=== PATIENT | female | born 2000 | race Caucasian/White ===

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

== ENCOUNTER 2020-08-08 11:31 | Emergency (ER) | payer OTHER ==
[2020-08-08 11:34] VITALS: BP 135/88; PULSE 80; RESP 18; TEMP 98.5
--- NOTE | 2020-08-08 11:51 | ED ---
General Adult HPI - General Source: patient Mode of arrival: ambulatory Limitations: no limitations <Jere Dorsey - Last Filed: 08/08/20 12:01> <Ying Rojas - Last Filed: 08/08/20 21:46> - General Chief complaint: Extremity Injury, Upper Stated complaint: hand injury Time Seen by Provider: 08/08/20 11:35 - History of Present Illness Initial comments: 19-year-old female presents to the emergency room for a chief complaint of removal of acrylic nail. Patient reports that she slammed her right second digit in a car door and injured it. Patient reports she had x-rays at urgent care at another emergency center and there were no fractures. Patient reports that she is close to be getting in 3 hours and once the acrylic nail removed. States she went to her nail salon and they were not able to do soaks there is some bleeding. She reports she is supposed to be getting a white nail placed for her wedding but will not be able to do this if the initial acrylic is not removed.Patient has no other complaints at this time including shortness of breath, chest pain, abdominal pain, nausea or vomiting, headache, or visual changes. (Jere Dorsey) - Related Data Home Medications Medication Instructions Recorded Confirmed Albuterol Inhaler (Mhu) [Ventolin 2 puff INHALATION RT-Q6H PRN 08/18/14 11/01/18 Hfa Inhaler (Mhu)] Vilvet 1 tab PO DAILY 11/01/18 11/01/18 Previous Rx's Medication Instructions Recorded predniSONE [Deltasone] 40 mg PO DAILY 5 Days #10 tablet 11/02/18 Allergies Allergy/AdvReac Type Severity Reaction Status Date / Time nickel [Nickel] Allergy Rash/Hives Verified 08/08/20 11:35 red dye Allergy Unknown Verified 08/08/20 11:35 Review of Systems ROS Other: All systems not noted in ROS Statement are negative. <Jere Dorsey - Last Filed: 08/08/20 12:01> ROS Other: All systems not noted in ROS Statement are negative. <Ying Rojas - Last Filed: 08/08/20 21:46> ROS Statement: Those systems with pertinent positive or pertinent negative responses have been documented in the HPI. Past Medical History Past Medical History: Asthma Additional Past Medical History / Comment(s): bronchitis History of Any Multi-Drug Resistant Organisms: None Reported Past Surgical History: Orthopedic Surgery Additional Past Surgical History / Comment(s): Right hand sx Past Psychological History: No Psychological Hx Reported Smoking Status: Never smoker Past Alcohol Use History: None Reported Past Drug Use History: None Reported <Jere Dorsey - Last Filed: 08/08/20 12:01> General Exam Limitations: no limitations General appearance: alert, in no apparent distress Head exam: Present: atraumatic Eye exam: Present: normal appearance, PERRL, EOMI. Absent: scleral icterus, conjunctival injection ENT exam: Present: normal exam, mucous membranes moist Neck exam: Present: normal inspection, full ROM. Absent: tenderness Respiratory exam: Present: normal lung sounds bilaterally. Absent: respiratory distress, wheezes Cardiovascular Exam: Present: regular rate, normal rhythm, normal heart sounds GI/Abdominal exam: Present: soft, normal bowel sounds. Absent: distended, tenderness Extremities exam: Present: other (patient has crack in the proximal aspect of acrylic nail in right second digit. There is minimal bleeding coming from proximal nailbed. There is no avulsion. I am unable to evaluate for subungual hematoma.) <Jere Dorsey - Last Filed: 08/08/20 12:01> Course Vital Signs 08/08/20 11:32 Temperature 98.5 F Pulse Rate 80 Respiratory 18 Rate Blood Pressure 135/88 O2 Sat by Pulse 98 Oximetry Medical Decision Making <Jere Dorsey - Last Filed: 08/08/20 12:01> <Ying Rojas - Last Filed: 08/08/20 21:46> - Medical Decision Making Patient once or acrylic nail removed. Discussed that we are unable to do this given lack of equipment. Patient has no nail avulsion. I'm unable to evaluate for subungual hematoma given acrylic nail. There is slight bleeding coming from the proximal nail fold. She should talk to nail salon again about shaving down acyllic nail and take Motrin Tylenol for pain. She should return for any worsening symptoms. (Jere Dorsey) I was available for consultation in the emergency department. The history and physical exam were done by the midlevel provider. I was consulted for this patients care. I reviewed the case with the midlevel provider and based on their presentation of the patient, I agree with the assessment, medical decision making and plan of care as documented. Chart was dictated using idio dictation software. Attempts were made to correct any dictation errors however some typographical errors may persist. Patient was seen during a national state of emergency due to the Covid-19 pandemic. (Ying Rojas) Disposition Is patient prescribed a controlled substance at d/c from ED?: No Time of Disposition: 11:51 <Jere Dorsey - Last Filed: 08/08/20 12:01> <Ying Rojas - Last Filed: 08/08/20 21:46> Clinical Impression: Injury of nail Disposition: HOME SELF-CARE Condition: Good Instructions (If sedation given, give patient instructions): Nail Avulsion (ED) Additional Instructions: Take Motrin and Tylenol for pain. Monitor for signs of infection such as spreading or streaking redness, drainage, or fever and return if these occur. Otherwise follow-up with primary care. Referrals: Ryan Gutierrez [STAFF PHYSICIAN] - 1-2 days
== END 2020-08-08 12:02 | disposition home or self-care (01) ==
LOC: EC 11:31
DX: S69.81XA Other specified injuries of right wrist, hand and finger(s), initial encounter (principal); J45.909 Unspecified asthma, uncomplicated; Z79.51 Long term (current) use of inhaled steroids; Z91.041 Radiographic dye allergy status; Z91.048 Other nonmedicinal substance allergy status; W22.09XA Striking against other stationary object, initial encounter
CPT/HCPCS: 99283

== ENCOUNTER 2022-06-17 17:29 | Inpatient (IN) | payer MEDICAID, OTHER ==
--- NOTE | 2022-06-17 18:40 | ED ---
General Adult HPI - General Chief complaint: Psychiatric Symptoms Stated complaint: mental health Time Seen by Provider: 06/17/22 18:00 Source: patient, RN notes reviewed, old records reviewed Mode of arrival: ambulatory - History of Present Illness Initial comments: Patient is a 21-year-old female with past medical history remarkable for mild asthma who presents emergency department for psychiatric evaluation. She has been having suicidal ideations for the last year and is gotten worse in the last few weeks. States she does have a plan. Plans to take an overdose on home medications including ibuprofen. Has not attempted. Patient's aunt brought her to the emergency department for evaluation. Denies having a therapist or psychiatrist. Denies any homicidal ideations, attempts, plans. Denies any visual or auditory hallucinations. Denies any chest pain, shortness breath, abdominal pain, nausea, vomiting. No other acute complaint at this time. Endorses occasional social alcohol use. Denies any drug use. Presents for psychiatric evaluation. - Related Data Home Medications Medication Instructions Recorded Confirmed Albuterol Inhaler [Ventolin Hfa 2 puff INHALATION RT-Q6H PRN 08/18/14 06/17/22 Inhaler] Allergies Allergy/AdvReac Type Severity Reaction Status Date / Time nickel [Nickel] Allergy Rash/Hives Verified 06/17/22 19:18 red dye Allergy Unknown Verified 06/17/22 19:18 Review of Systems ROS Statement: Those systems with pertinent positive or pertinent negative responses have been documented in the HPI. Review of Systems: CONST: Denies fever EYES: Denies blurry vision ENT: Denies nasal congestion C/V: Denies Chest pain RESP: Denies shortness of breath GI: Denies abdominal pain : Denies dysuria SKIN: Denies rash. MSK: Denies joint pain. NEURO: Denies headache PSYCH: Denies homicidal ideations/plans/attempts. Denies visual or auditory hallucinations. She endorses suicidal ideations, plan. Denies attempt. ROS Other: All systems not noted in ROS Statement are negative. Past Medical History Past Medical History: Asthma Additional Past Medical History / Comment(s): bronchitis History of Any Multi-Drug Resistant Organisms: None Reported Past Surgical History: Orthopedic Surgery Additional Past Surgical History / Comment(s): Right hand sx Past Psychological History: No Psychological Hx Reported Smoking Status: Never smoker Past Alcohol Use History: None Reported Past Drug Use History: None Reported General Exam - General Exam Comments Initial Comments: General: Appears in no acute distress. HEAD: Normal with no signs of head trauma. EYES: PERRLA, EOMI, conjunctiva normal, no discharge. ENT: Hearing grossly intact, normal oropharynx. RESPIRATORY: Clear breath sounds bilaterally. No wheezes, rales, or rhonchi. C/V: Regular rate and rhythm. S1 and S2 auscultated, no edema, peripheral pulses 2+ and intact throughout ABD: Abd is soft, nontender, nondistended EXT: Normal range of motion, no obvious deformity SKIN: No rashes or lesions observed on exposed skin. NEURO: Alert and oriented x 4. Course Vital Signs 06/17/22 17:57 Temperature 98.6 F Pulse Rate 78 Respiratory 16 Rate Blood Pressure 138/88 O2 Sat by Pulse 100 Oximetry Medical Decision Making - Medical Decision Making Was pt. sent in by a medical professional or institution? @ -No Did you speak to anyone other than the patient for history? @ -Patient's aunt Did you review nursing and triage notes? @ -Agree Were old charts reviewed? @ -No Differential Diagnosis? @ -Suicidal ideations, psychiatric illness. EKG interpreted by me (3pts min.)? @ -none X-rays interpreted by me (1pt min.)? @ -none CT interpreted by me (1pt min.)? @ -none U/S interpreted by me (1pt. min.)? @ -none What testing was considered but not performed? (CT, X-rays, U/S, labs)? Why? @None What meds were considered but not given? Why? @ -none Did you discuss the management of the patient with other professionals? @ -Psych social work was notified of the patient. Pending evaluation. Did you reconcile home meds? @ -none Was smoking cessation discussed for >3mins.? @ -none Was critical care preformed (if so, how long)? @ -none Were there social determinants of health that impacted care today? How? (Homelessness, low income, unemployed, alcoholism, drug addiction, transportation, low edu. Level, literacy, decrease access to med. care, long term, rehab)? @ -None Was there de-escalation of care discussed even if they declined? (Discuss DNR or withdrawal of care, Hospice)? @ -No What co-morbidities impacted this encounter? (DM, HTN, Smoking, COPD, CAD, Cancer, CVA, Hep., AIDS, mental health diagnosis, sleep apnea, morbid obesity)? @ -Anxiety, depression Was patient admitted / discharged? @ -Patient was evaluated for psychiatric evaluation. She was placed in green scrubs. Sitter was ordered. Suicide precautions ordered. BAT is 0. UDS is pending at this time. Patient is medically cleared for evaluation by psychiatry. Disposition is per psychiatric evaluation. Vital signs within acceptable limits. Patient is admitted to inpatient psychiatry in stable condition following psychiatric evaluation. Undiagnosed new problem with uncertain prognosis? @ -Suicidal ideations Drug Therapy requiring intensive monitoring for toxicity (Heparin, Nitro, Insulin, Cardizem)? @ -none Were any procedures done? @ -none Diagnosis/symptom? @ -Suicidal ideations, encounter for psychiatric evaluation. Acute, or Chronic, or Acute on Chronic? @ -Acute Uncomplicated (without systemic symptoms) or Complicated (systemic symptoms)? @ -Uncomplicated Side effects of treatment? @ -none Exacerbation, Progression, or Severe Exacerbation] @ -no Poses a threat to life or bodily function? @ -no Patient is medically cleared for evaluation by psychiatry. Disposition is pending psychiatric evaluation. EpS was notified.Patient was evaluated by EPS. She'll be admitted to inpatient psychiatry in stable condition. - Lab Data Lab Results 06/17/22 06/17/22 Range/Units 18:47 18:59 Urine Opiates Screen Not Detected (NotDetected) Ur Oxycodone Screen Not Detected (NotDetected) Urine Methadone Screen Not Detected (NotDetected) Ur Propoxyphene Screen Not Detected (NotDetected) Ur Barbiturates Screen Not Detected (NotDetected) U Tricyclic Antidepress Not Detected (NotDetected) Ur Phencyclidine Scrn Not Detected (NotDetected) Ur Amphetamines Screen Not Detected (NotDetected) U Methamphetamines Scrn Not Detected (NotDetected) U Benzodiazepines Scrn Not Detected (NotDetected) Urine Cocaine Screen Not Detected (NotDetected) U Marijuana (THC) Screen Not Detected (NotDetected) Coronavirus (PCR) Not Detected (Not Detectd) Disposition Clinical Impression: Encounter for psychiatric assessment Disposition: ADMITTED IP TO THIS HOSP Condition: Stable
[2022-06-17 19:55] LABS: Amphetamine Screen,Urine Not Detected (NotDetected); Barbiturate Screen,Urine Not Detected (NotDetected); Benzodiazepines Screen,Urine Not Detected (NotDetected); Cocaine Screen,Urine Not Detected (NotDetected); Methadone Screen, Urine Not Detected (NotDetected); Opiate Screen,Urine Not Detected (NotDetected); Oxycodone Screen, Urine Not Detected (NotDetected); Phencyclidine Screen,Urine Not Detected (NotDetected); Tricyclic Antidepressant,Urine Not Detected (NotDetected); Urn Cannabinoid Scrn Not Detected (NotDetected)
[2022-06-17] MEDS ORDERED: ALBUTEROL INHALER 60 PUFF/8 GM INHALER (MHU) INHALATION PRN (23:18)
[2022-06-17] MEDS ORDERED: MAGNESIUM HYDROXIDE 2,400 MG/10 ML CUP PO PRN (23:19)
[2022-06-17] MEDS ORDERED: HALOPERIDOL LACTATE 5 MG/ML 1 ML VIAL IM PRN (23:19)
[2022-06-17] MEDS ORDERED: LORazepam 1 MG TAB PO PRN (23:19)
[2022-06-17] MEDS ORDERED: haloperidoL 5 MG TAB PO PRN (23:21)
[2022-06-17] MEDS ORDERED: LORazepam 2 MG/ML INJ IM PRN (23:21)
[2022-06-17] MEDS ORDERED: traZODone HCL 100 MG TAB PO PRN (23:21)
--- NOTE | 2022-06-18 03:47 | P.MDCNMH ---
History of Present Illness H&P Date: 06/17/22 Chief Complaint: medical evaluation 21 year old female , presented with suicidal ideation , she denies any mental health diagnosis in the past, she used to get therapy when she was 6 years old, she denies any medical concerns at this time, denies any fever, chills, chest pain , cough , SOB, changes in bowel or urinary habits, denies any rashes denies tobacco smoking, illicit drugs or heavy alcohol. she admits to vaping, and having social drinks once or twice a week. she reports history of asthma, but rarely requires inhalers. Review of Systems Pertinent positives as noted in HPI. All other systems were reviewed and are negative Past Medical History Past Medical History: Asthma Additional Past Medical History / Comment(s): bronchitis History of Any Multi-Drug Resistant Organisms: None Reported Past Surgical History: Orthopedic Surgery Additional Past Surgical History / Comment(s): Right hand sx Past Anesthesia/Blood Transfusion Reactions: No Reported Reaction Past Psychological History: No Psychological Hx Reported Smoking Status: Vaper Past Alcohol Use History: None Reported Past Drug Use History: None Reported - Past Family History family Family Medical History: Diabetes Mellitus, Hypertension Medications and Allergies Home Medications Medication Instructions Recorded Confirmed Type Albuterol Inhaler [Ventolin Hfa 2 puff INHALATION RT-Q6H PRN 08/18/14 06/17/22 History Inhaler] Allergies Allergy/AdvReac Type Severity Reaction Status Date / Time nickel [Nickel] Allergy Rash/Hives Verified 06/17/22 19:18 red dye Allergy Unknown Verified 06/17/22 19:18 Physical Exam Vitals: Vital Signs Temp Pulse Pulse Resp BP BP Pulse Ox 06/18/22 01:15 97.0 F L 69 18 133/83 06/17/22 17:57 98.6 F 78 16 138/88 100 Intake and Output 06/17/22 06/17/22 06/18/22 14:59 22:59 06:59 Other: Weight 86.183 kg 86.183 kg Constitutional: No acute distress, conversant, Eyes: Anicteric sclerae, moist conjunctiva, Pupils equal round reactive to light ENMT: NC/AT Oropharynx clear, no erythema, or exudates Neck: Supple, no masses, or JVD No carotid bruits No thyromegaly Lungs: Clear to auscultation Clear to percussion Normal respiratory effort, no accessory muscle use Cardiovascular: Heart regular in rate and rhythm, No murmurs, gallops, or rubs No peripheral edema Abdominal: Soft Nontender, no guarding, rebound or rigidity Abdomen moving with respiration Normoactive bowel sounds Skin: Normal temperature, tone, texture, turgor Extremities: No digital cyanosis No clubbing Pedal pulses intact and symmetrical Radial pulses intact and symmetrical No calf tenderness Psychiatric: Alert and oriented to person, place and time Neuro Muscles Strength 5/5 in all 4 extremities Sensation to light touch grossly present throughout Cranial nerves II-XII grossly intact Lymphatics: no palpable cervical or supraclavicular lymph nodes Cranial Nerve Examination - Cranial Nerves Cranial Nerve II- Optic: Intact Cranial Nerve III- Oculomotor: Intact Cranial Nerve IV- Trochlear: Intact Cranial Nerve V- Trigeminal: Intact Cranial Nerve - Abducens: Intact Cranial Nerve VII- Facial: Intact Cranial Nerve VIII- Auditory: Intact Cranial Nerve IX- Glossopharyngeal: Intact Cranial Nerve X- Vagus: Intact Cranial Nerve XI- Accessory: Intact Cranial Nerve XII- Hypoglossal: Intact Assessment and Plan Assessment: suicidal ideation management per psych obesity counseled regarding lifestyle modification and weight loss intermittent asthma monitor for any flare ups follow up blood work , TSH , and lipid panel thank you for this consultation , patient is stable from medical stand point at this time
[2022-06-18] MEDS: ACETAMINOPHEN TAB 325 MG TAB PO PRN (09:21)
[2022-06-18 09:26] LABS: Basophils # (A) 0.1 k/uL (0-0.2); Basophils % (A) 1 %; Eosinophils # (A) 0.3 k/uL (0-0.7); Eosinophils % (A) 4 %; HCT 43.2 % (34.0-46.0); HGB 13.5 gm/dL (11.4-16.0); Hypochromasia Slight; Lymphocytes # (A) 1.8 k/uL (1.0-4.8); Lymphocytes % (A) 21 %; MCH 27.8 pg (25.0-35.0); MCHC 31.4 g/dL (31.0-37.0); MCV 88.7 fL (80.0-100.0); Mean Platelet Volume 9.8; Monocytes # (A) 0.5 k/uL (0-1.0); Monocytes % (A) 5 %; Neutrophils # (A) 6.1 k/uL (1.3-7.7); Neutrophils % (A) 68 %; Platelet Count 295 k/uL (150-450); RBC 4.87 m/uL (3.80-5.40); RDW 13.1 % (11.5-15.5); WBC 8.9 k/uL (3.8-10.6)
[2022-06-18] MEDS: NICOTINE 14MG/24HR PATCH TRANSDERM SCH (09:32)
[2022-06-18 09:36] LABS: ALT 21 U/L (4-34); AST 24 U/L (14-36); African American GFR (CKD) >90 (>60 ml/min/1.73 sqM); Albumin 4.3 g/dL (3.5-5.0); Alkaline Phosphatase 88 U/L (38-126); Anion Gap 8 mmol/L; Blood Urea Nitrogen 11 mg/dL (7-17); Calcium 9.5 mg/dL (8.4-10.2); Carbon Dioxide 25 mmol/L (22-30); Chloride 105 mmol/L (98-107); Glucose 112 mg/dL (74-99); Non-African American GFR(CKD) >90 (>60 ml/min/1.73 sqM); Potassium 4.1 mmol/L (3.5-5.1); Sodium 138 mmol/L (137-145); Total Bilirubin 0.5 mg/dL (0.2-1.3); Total Protein 7.4 g/dL (6.3-8.2)
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
[2022-06-18] MEDS: SERTRALINE 50 MG TAB PO SCH (14:27)
[2022-06-18 14:54] LABS: Chol/HDL Ratio 2.68 Ratio; LDL Cholesterol,Calculated 84.5 mg/dL (0.0-131.0); VLDL Calculation 14.56 mg/dL (5.00-40.00)
[2022-06-18] MEDS: MAG HYDROX/AL HYDROX/SIMETH 30 ML CUP PO PRN (18:58)
[2022-06-18] MEDS: traZODone HCL 50 MG TAB PO SCH (20:13)
[2022-06-19 07:26] VITALS: RESP 14
[2022-06-19] MEDS: NICOTINE 14MG/24HR PATCH TRANSDERM SCH (09:05)
[2022-06-19] MEDS: SERTRALINE 50 MG TAB PO SCH (09:06)
[2022-06-19] MEDS: MAG HYDROX/AL HYDROX/SIMETH 30 ML CUP PO PRN (09:06)
--- NOTE | 2022-06-19 11:39 | P.PN ---
Progress Note - Text Progress Note Date: 06/19/22 Interval History: Patient was seen wandering the hallways and was directable and agreeable to danielle atkins with sports book writer in the office. Patient appears to be brighter in her affect today. She states that she is doing a bit better since yesterday in terms of her mood and anxiety. Claims that she was feeling a bit nauseous yesterday after eating and was requesting to be on antinausea medications. Patient is okay with continuing on with her medications. She states that she slept fairly well last night and still feels somewhat tired this morning. Claims that she is trying to go to groups and participate more. Appears to be more talkative and improving eye contact. Claims that she would like to stay with her mother upon discharge. At this time patient denies any suicidal or homical ideations, intent or plan. Patient denies any auditory, visual hallucinations and denies any paranoia or delusions. Patient denies any side effects from the medications and has been compliant with meds. Mental Status Exam: General Appearance: Patient appears to be overweight, stated age is alert, directable, and attempts to cooperate. Patient appears to have improving hygiene and grooming. Improving eye contact. Behavior: Patient is seated without any agitated behavior. Will cooperative today. Speech: Patient's speech is fluent and nonpressured. Mood/Affect: Patient reports their mood is improving mildly, affect is congruent and constricted. Suicidality/Homicidality: Patient denies having any homicidal ideation intent or plan. She denies any suicidal thoughts, no intent or plan. Perceptions: Patient denies any visual hallucinations and denies any auditory hallucinations Though content/process: There is no evidence of any delusional thought content and thought process is linear and goal-directed. Memory and concentration: AOX3, grossly intact for the purposes of this session Judgment and insight: Improving mildly IMPRESSIONS: Major depressive disorder, severe without psychotic features Nicotine dependence Cannabis use disorder mild Plan: -Patient continues to meet criteria for inpatient psychiatric admission for symptom stabilization and safety. Patient has signed adult voluntary form and medication consent and was placed in patient's chart. -Medications: increase Zoloft 75 mg daily for mood/anxiety, trazodone 50 mg daily at bedtime or mood/insomnia. -When necessary Ativan and Haldol for agitation/aggression. -NRT - nicotine patch -SW on board for discharge planning. Encouraged the patient to participate in milieu. workers' compensation mediator to contact patient's mother today and arrange for possible discharge tomorrow and to ensure environment is safe at home no guns or weapons.
[2022-06-19] MEDS: ONDANSETRON 4 MG TAB PO PRN (17:50)
[2022-06-19] MEDS: traZODone HCL 50 MG TAB PO SCH (21:04)
[2022-06-20 06:55] VITALS: BP 108/59; PULSE 72; TEMP 98.4
[2022-06-20] MEDS: NICOTINE 14MG/24HR PATCH TRANSDERM SCH (08:53)
[2022-06-20] MEDS ORDERED: SERTRALINE 25 MG TAB PO SCH (09:00)
[2022-06-20] MEDS: ACETAMINOPHEN TAB 325 MG TAB PO PRN (10:57)
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
[2022-06-20] MEDS: ONDANSETRON 4 MG TAB PO PRN (13:28)
== END 2022-06-20 17:00 | disposition home or self-care (01) | DRG 885 ==
LOC: EC 17:29 → 3MHU 22:54
PROVIDERS: ADMIT Psychiatry & Neurology Psychiatry; ATTEND Psychiatry & Neurology Psychiatry
DX: F33.2 Major depressive disorder, recurrent severe without psychotic features (principal); R45.851 Suicidal ideations; F17.210 Nicotine dependence, cigarettes, uncomplicated; Z20.822 Contact with and (suspected) exposure to COVID-19; Z71.6 Tobacco abuse counseling; F12.10 Cannabis abuse, uncomplicated; F10.20 Alcohol dependence, uncomplicated; F41.9 Anxiety disorder, unspecified; J40 Bronchitis, not specified as acute or chronic; J45.909 Unspecified asthma, uncomplicated; Z91.048 Other nonmedicinal substance allergy status; E66.9 Obesity, unspecified; Z71.3 Dietary counseling and surveillance; Z68.33 Body mass index [BMI] 33.0-33.9, adult; Z79.899 Other long term (current) drug therapy
CPT/HCPCS: 80053; 80061; 80306; 82075; 83036; 84443; 85025; 87635; 99285